=== PATIENT | female | born 1965 | race American Indian/Alaskan Native ===

== ENCOUNTER 2017-10-17 11:11 | Outpatient (CLI) | payer OTHER ==
--- NOTE | 2017-10-22 11:04 | XRAY Report ---
EXAMINATION: THREE-VIEW LUMBAR SPINE 10/17/2017. INDICATION: Low back pain. FINDINGS: AP, lateral, coned-down views of the lumbar spine demonstrate mild degenerative disk and facet disease. There are bilateral L5 pars defects, with approximately 5 mm anterolisthesis of L5 on S1. No compression fracture is identified. IMPRESSION: ANTEROLISTHESIS OF L5 ON S1, SECONDARY TO BILATERAL L5 PARS DEFECTS. MILD DEGENERATIVE CHANGES. TD: 10/17/2017 13:43 [facility]
== END 2017-10-17 11:12 | disposition home or self-care (01) ==
LOC: DI 11:11
PROVIDERS: ATTEND Internal Medicine
DX: M43.06 Spondylolysis, lumbar region (principal); M51.36 Other intervertebral disc degeneration, lumbar region; M47.896 Other spondylosis, lumbar region
CPT/HCPCS: 72100

== ENCOUNTER 2018-07-11 14:40 | Outpatient (CLI) | payer OTHER ==
--- NOTE | 2018-07-12 19:24 | Ultrasound Report ---
Reason: ELEVATED LFT'S Procedure Date: 07/11/2018 Accession Number: [id number] / [id number] Procedure: US - Abdomen Limited CPT Code: FULL RESULT: EXAM: ABDOMEN ULTRASOUND LIMITED, RUQ EXAM DATE: 07/11/2018 03:16 PM. CLINICAL HISTORY: Elevated LFTs. COMPARISON: None. TECHNIQUE: Real-time scanning was performed with static images obtained. FINDINGS: Liver: Normal in size. Hyperechoic echotexture. 17.9 cm. Main portal vein flow: Hepatopetal. Gallbladder: Surgically absent. Biliary System: CBD measures 5 mm. No intrahepatic or extrahepatic ductal dilatation. Other: The visualized pancreas and right kidney are unremarkable. No free fluid. IMPRESSION: 1. Cholecystectomy. 2. Hepatic steatosis. RADIA
== END 2018-07-11 14:41 | disposition home or self-care (01) ==
LOC: DI 14:40
PROVIDERS: ATTEND Internal Medicine
DX: R74.8 Abnormal levels of other serum enzymes (principal); K76.0 Fatty (change of) liver, not elsewhere classified
CPT/HCPCS: 76705

== ENCOUNTER 2020-10-20 18:25 | Emergency (ER) | payer OTHER ==
[2020-10-20 18:44] VITALS: BP 132/71
--- NOTE | 2020-10-20 19:08 | ED Physician Documentation ---
PD HPI LOWER EXT INJURY - Stated complaint Stated Complaint: GLF/RT ANKLE PX - Chief complaint Chief Complaint: Ext Problem - History obtained from History obtained from: Patient - Additional information Additional information: She was in her yard scooping the dog poop, inverted her ankle, the right 1 on a wet surface on slope. For the cough and now has moderate pain in the lateral right ankle. Declines pain medications. No other injuries. Review of Systems Constitutional: reports: Reviewed and negative Eyes: reports: Reviewed and negative Ears: reports: Reviewed and negative Nose: reports: Reviewed and negative Throat: reports: Reviewed and negative Cardiac: reports: Reviewed and negative PD PAST MEDICAL HISTORY - Past Medical History Past Medical History: Yes Cardiovascular: None, Other Respiratory: None Endocrine/Autoimmune: None GI: GERD SAMPLE COLLECTOR: Fibroids : None HEENT: None Psych: None Musculoskeletal: None Derm: None, Other - Past Surgical History Past Surgical History: Yes General: Cholecystectomy Ortho: Other /SAMPLE COLLECTOR: section - Present Medications Home Medications: Ambulatory Orders Medication Instructions Recorded Confirmed Knee Scooter 1 unit TD ONCE #1 10/20/20 metFORMIN [Glucophage] 500 mg PO BIDWM 10/20/20 10/20/20 - Allergies Allergies/Adverse Reactions: Allergies Allergy/AdvReac Type Severity Reaction Status Date / Time tomatoes Allergy Intermediate Itching Uncoded 10/20/20 18:44 - Social History Does the pt smoke?: No Smoking Status: Never smoker Does the pt drink ETOH?: No Does the pt have substance abuse?: No - Immunizations Immunizations are current?: Yes - POLST Patient has POLST: No PD ED PE NORMAL - Vitals Vital signs reviewed: Yes - General General: Alert and oriented X 3, No acute distress - Extremities Extremities: Other (Mild tenderness over the lateral malleolus. No tenderness over the proximal fibula nor the foot anywhere. No swelling. No deformity. Good pedal pulses and sensation.) - Neuro Neuro: Alert and oriented X 3, Normal speech Results - Vitals Vitals: Vital Signs - 24 hr 10/20/20 18:39 Temperature 36.6 C Heart Rate 74 Respiratory 16 Rate Blood Pressure 132/71 H O2 Saturation 95 Oxygen O2 Source Room air - Rads (name of study) R ankle XR Radiology: EMP read contemporaneously (Very distal chip fracture of the fibula) Procedures - Splint (location) RRLE Splint applied by: Tech Type of splint: Fiberglass, Short leg, Posterior Other: Patient tolerated well, No complications, Neurovascular intact, Crutches provided Departure - Departure Disposition: 01 Home, Self Care Clinical Impression: Closed fracture of right distal fibula Qualifiers: Encounter type: initial encounter Fracture morphology: other fracture Qualified Code(s): S82.831A - Other fracture of upper and lower end of right fibula, initial encounter for closed fracture Condition: Good Record reviewed to determine appropriate education?: Yes Instructions: ED Fx Lower Ext Follow-Up: [facility] [Provider Group] Prescriptions: Knee Scooter 1 unit TD ONCE #1 Comments: You just have a little chip fracture of the end of the bone at the ankle there. I think this will heal up fine. Keep the splint on and do not walk on it pending follow-up with the orthopedic office. Call them on Friday for an appointment. You can take Tylenol or ibuprofen as needed for pain. Keep it elevated. Discharge Date/Time: 10/20/20 19:50
--- OUTSIDE RECORDS SUMMARY | 2020-10-20 19:11 | EXTERNAL MEDICAL SUMMARY RPT | Continuity of Care Document ---
:1965 Demographics Phone Unavailable Preferred Language Georgian Marital Status Unknown Zoroastrian Affiliation Unknown Race Unknown Ethnic Group Unknown Author Organization [employer] [address] [place] [address] Phone Care Team Providers Name Role Phone Sonny Cazares Unavailable Unavailable Sri Hancock Unavailable Unavailable Sofi Salinas Unavailable Unavailable Problems date description facility Never smoked tobacco (finding) [facility] Patient Education [facility] 2017-10-17 11:10 LOW BACK PAIN [facility] 2017-10-17 11:11 LOW BACK PAIN [facility] 2017-11-04 13:40 ENCNTR SCREEN MAMMOGRAM FOR [facility] MALIGNANT NEOPLASM OF BREAST 2017-11-10 13:40 ENCNTR SCREEN MAMMOGRAM FOR [facility] MALIGNANT NEOPLASM OF BREAST 2018-07-09 15:45 ABNORMAL LEVELS OF OTHER SERUM [facility] ENZYMES 2018-07-11 14:40 ABNORMAL LEVELS OF OTHER SERUM [facility] ENZYMES 2018-07-11 15:15 ABNORMAL LEVELS OF OTHER SERUM [facility] ENZYMES 2020-09-30 22:[address] Allergies date description facility No Known Drug Allergies [facility] Medications date description facility 2020-10-09 00:00:00 Acetaminophen 325 MG Oral Tablet [facility] 2020-10-09 00:00:00 Cyclobenzaprine hydrochloride 5 MG [facility] Tablet 2020-10-09 00:00:00 Metformin hydrochloride 500 MG Oral Ta [facility] 2020-10-09 00:00:00 Codeine Phosphate 2 MG/ML / Guaifenesi n 20 [facility] MG/ML Oral Solution Procedures date description facility 2020-09-26 00:00:00 [facility] date description facility 2020-09-26 00:00:00 [facility] date description facility 2020-09-26 00:00:00 [facility] date description facility 2020-09-26 00:00:00 [facility] date description facility 2020-09-30 00:00:00 [facility] date description facility 2020-09-30 00:00:00 [facility] date description facility 2020-09-30 00:00:00 Finding [facility] date description facility 2020-09-30 00:00:00 General Physician [facility] date description facility 2020-09-30 00:00:00 [facility] date description facility 2020-09-30 00:00:00 [facility] date description facility 2020-10-01 00:00:00 [facility] date description facility 2020-10-02 00:00:00 [facility] date description facility 2020-10-02 00:00:00 [facility] date description facility 2020-10-04 00:00:00 [facility] Results Social History date description facility [id number] Never smoked tobacco (finding) [facility] Social History date description facility [id number] Never smoked tobacco (finding) [facility] date description facility [id number]
--- NOTE | 2020-10-20 19:19 | XRAY Report ---
PROCEDURE: Ankle 3 View RT INDICATIONS: Fall, now pain TECHNIQUE: 3 views of the ankle were acquired. COMPARISON: None FINDINGS: Bones: Slightly displaced fracture involving tip of lateral malleolus is seen.. Ankle mortise is nor moe aligned. No suspicious bony lesions. Soft tissues: No tibiotalar joint effusion. Achilles tendon appears normal. IMPRESSION: Slightly displaced lateral malleolus tip fracture with mild overlying soft tissue swelli ng. Intact ankle mortise. Reviewed by: Ottoniel Byrne MD on 10/20/2020 7:17 PM PST Approved by: Ottoniel Byrne MD on 10/20/2020 7:17 PM PST Station ID: [id number]
== END 2020-10-20 19:50 | disposition home or self-care (01) ==
LOC: ED 18:25
DX: S82.831A Other fracture of upper and lower end of right fibula, initial encounter for closed fracture (principal); X50.1XXA Overexertion from prolonged static or awkward postures, initial encounter; Y93.H1 Activity, digging, shoveling and raking
CPT/HCPCS: 29515

== ENCOUNTER 2020-12-07 08:00 | Outpatient (CLI) | payer OTHER ==
--- NOTE | 2020-12-07 15:46 | XRAY Report ---
PROCEDURE: Ankle 3 View RT INDICATIONS: ANKLE PAIN, RIGHT TECHNIQUE: 3 views of the ankle were acquired. COMPARISON: 10/20/2020 FINDINGS: Bones: Minimally displaced fracture involving the tip of the lateral malleolus is less conspicuous co mpared to prior examination compatible with evolution of healing. Ankle mortise is normally aligned. No suspicious bony lesions. Soft tissues: No tibiotalar joint effusion. Achilles tendon appears normal. Calcaneal bone spurs. IMPRESSION: Lateral malleolus fracture healing in anatomic alignment. Reviewed by: Susan Chaney MD, PhD on 12/07/2020 3:44 PM PST Approved by: Susan Chaney MD, PhD on 12/07/2020 3:44 PM PST Station ID: [id number]
== END 2020-12-07 23:59 | disposition home or self-care (01) ==
LOC: DI.N 08:00
PROVIDERS: ATTEND Physician Assistant
DX: S82.61XD Displaced fracture of lateral malleolus of right fibula, subsequent encounter for closed fracture with routine healing (principal)

== ENCOUNTER 2020-12-22 07:00 | Outpatient (CLI) | payer OTHER ==
--- NOTE | 2020-12-22 10:36 | XRAY Report ---
PROCEDURE: Ankle 3 View RT INDICATIONS: RT ANKLE FOLLOW UP TECHNIQUE: 3 views of the ankle were acquired. COMPARISON: 12/07/2020, 10/20/2020 FINDINGS: Bones: Stable alignment of distal lateral malleolus fracture with increased sclerosis and blurring of the fracture plane. Ankle mortise is normally aligned. Interval development of minor subcortical cy stic changes in the medial corner of the talus. Soft tissues: No tibiotalar joint effusion. Achilles tendon appears normal. IMPRESSION: 1. Healing distal fibular fracture. 2. Development of subcortical medial talar dome cysts. Continued follow-up is suggested. Reviewed by: Maren Pennington MD on 12/22/2020 9:35 AM [place] Approved by: Maren Pennington MD on 12/22/2020 9:35 AM [facility] Station ID: [id number]
== END 2020-12-22 23:59 | disposition home or self-care (01) ==
LOC: DI.N 07:00
PROVIDERS: ATTEND Physician Assistant
DX: M25.571 Pain in right ankle and joints of right foot (principal); S82.831D Other fracture of upper and lower end of right fibula, subsequent encounter for closed fracture with routine healing; M25.871 Other specified joint disorders, right ankle and foot

== ENCOUNTER 2021-02-22 13:34 | Outpatient (CLI) | payer OTHER ==
--- NOTE | 2021-02-23 09:37 | Mammography Report ---
BILATERAL DIGITAL SCREENING MAMMOGRAM 3D/2D: 02/22/2021 CLINICAL: Routine screening. Comparison is made to exams dated: 01/09/2017 mammogram, 01/09/2017 ultrasound - [facility], an d 10/03/2014 mammogram - [facility]. There are scattered fibroglandular elements in katya th breasts. No significant masses, calcifications, or other findings are seen in either breast. There has been no significant interval change. IMPRESSION: NEGATIVE There is no mammographic evidence of malignancy. A 1 year screening mammogram is recommended. This exam was interpreted at Station ID: [id number]. NOTE: For mammograms, a report in lay terms will be sent to the patient. Approximately 15% of breast malignancies will not be visualized mammographically. In the management of a palpable breast mass, a negative mammogram must not discourage biopsy of a clinically suspicious lesion. Electronically Signed By: Sergio Evans M.D. slc/penrad:02/22/2021 15:57:43 ACR BI-RADS Category 1: Negative 3341F PARENCHYMAL PATTERN: (A) - The breast(s) demonstrate(s) scattered fibroglandular densities. BI-RADS CATEGORY: (1) - 1 RECOMMENDATION: (ANNUAL) - Recommend routine annual screening mammography. [id number] 1 year screening LATERALITY: (B)
== END 2021-02-22 13:35 | disposition home or self-care (01) ==
LOC: DI.N 13:34
PROVIDERS: ATTEND Hospitalist
DX: Z12.31 Encounter for screening mammogram for malignant neoplasm of breast (principal)

== ENCOUNTER 2021-05-30 13:07 | Outpatient (CLI) | payer OTHER ==
--- NOTE | 2021-05-30 15:17 | XRAY Report ---
PROCEDURE: Sacrum/Coccyx INDICATIONS: BACK PX TECHNIQUE: 3 views of the sacrum and coccyx acquired. COMPARISON: None FINDINGS: Bones: No fractures or dislocations. No suspicious bony lesions. Mild L5-S1 anterolisthesis seconda ry to bilateral L5 pars and articularis defects. Mild degenerative changes noted in the visualized allison mbar spine. Mild bilateral hip osteoarthritis. Soft tissues: Visualized bowel gas pattern is normal. No suspicious soft tissue densities. Mild degenerative disc changes noted in the lower lumbar spine. IMPRESSION: 1. No fracture. No acute osseous lesion. If there are persistent symptoms or continued clinical amanda rn for pathology, then MRI should be considered for further evaluation. 2. Grade 1 L5-S1 isthmic spondylolisthesis. Reviewed by: Susan Chaney MD, PhD on 05/30/2021 3:16 PM PDT Approved by: Susan Chaney MD, PhD on 05/30/2021 3:16 PM PDT Station ID: [id number]
== END 2021-05-30 23:59 | disposition home or self-care (01) ==
LOC: DI.N 13:07
PROVIDERS: ATTEND Nurse Practitioner
DX: M54.9 Dorsalgia, unspecified (principal); M43.17 Spondylolisthesis, lumbosacral region

== ENCOUNTER 2021-07-17 08:00 | Outpatient (CLI) | payer OTHER ==
--- NOTE | 2021-07-17 11:59 | XRAY Report ---
PROCEDURE: Ankle 3 View RT INDICATIONS: DISPLACED FX OF LATERAL TECHNIQUE: 3 views of the ankle were acquired. COMPARISON: X-ray ankle 12/22/2020 FINDINGS: Bones: Previously noted distal lateral malleolar fracture is no longer visualized. No acute fractures are present. Ankle mortise is normally aligned. No suspicious bony lesions. Soft tissues: No tibiotalar joint effusion. Achilles tendon appears normal. IMPRESSION: Previous lateral malleolar fracture is not visualized. Reviewed by: Annelise Denny MD on 07/17/2021 11:58 AM PDT Approved by: Annelise Denny MD on 07/17/2021 11:58 AM PDT Station ID: [id number]
== END 2021-07-17 23:59 | disposition home or self-care (01) ==
LOC: DI.N 08:00
PROVIDERS: ATTEND Physician Assistant
DX: S82.61XA Displaced fracture of lateral malleolus of right fibula, initial encounter for closed fracture (principal)

== ENCOUNTER 2021-11-05 15:48 | Emergency (ER) | payer OTHER ==
[2021-11-05] MEDS ORDERED: KETOROLAC 30 MG/ML VIAL IVP STA (16:42)
[2021-11-05] MEDS ORDERED: SODIUM CHLORIDE 0.9% 1,000 ML IV STA (16:42)
--- NOTE | 2021-11-05 16:45 | ED Physician Documentation ---
PD HPI ABD PAIN - Stated complaint Stated Complaint: BACK PX - Chief complaint Chief Complaint: Abd Pain - History obtained from History obtained from: Patient - History of Present Illness Timing - onset: Today Timing - duration: Hours Timing - details: Abrupt onset, Still present Quality: Sharp, Pain Location: RLQ Radiation: Right flank Improved by: Other (nothing) Worsened by: Other (nothing) Associated symptoms: Nausea, Vomiting, Diarrhea (two days ago one episode.). No: Dysuria, Hematuria Similar symptoms before: Has not had sx before Recently seen: Other (sent here by the lab) - Additional information Additional information: 56-year-old female previously well has developed acute right lower quadrant abdominal pain that is radiating to her back. This appeared to have come from nowhere and she is not able to make this any better or any worse. [place] emergency [place] Review of Systems Constitutional: denies: Fever Ears: denies: Ear pain Nose: denies: Congestion Throat: denies: Oral lesions / sores, Sore throat Cardiac: denies: Chest pain / pressure Respiratory: denies: Dyspnea, Cough GI: reports: Abdominal Pain, Nausea, Vomiting : denies: Dysuria, Frequency PD PAST MEDICAL HISTORY - Past Medical History Cardiovascular: None, Other Respiratory: None Endocrine/Autoimmune: None GI: GERD NEGATIVE CHECKER: Fibroids : None HEENT: None Psych: None Musculoskeletal: None Derm: None, Other - Past Surgical History Past Surgical History: Yes General: Cholecystectomy Ortho: Other /NEGATIVE CHECKER: section - Present Medications Home Medications: Ambulatory Orders Medication Instructions Recorded Confirmed Knee Scooter 1 unit TD ONCE #1 10/20/20 metFORMIN [Glucophage] 500 mg PO BIDWM 10/20/20 10/20/20 HYDROcod/ACETAM 5/325 [Hepzibah 5/325] 1 - 2 tablet PO Q6H PRN #14 tablet 11/05/21 - Allergies Allergies/Adverse Reactions: Allergies Allergy/AdvReac Type Severity Reaction Status Date / Time tomatoes Allergy Intermediate Itching Uncoded 11/05/21 16:04 - Social History Does the pt smoke?: No Smoking Status: Never smoker Does the pt drink ETOH?: No Does the pt have substance abuse?: No - Immunizations Immunizations are current?: Yes - POLST Patient has POLST: No PD ED PE NORMAL - Vitals Vital signs reviewed: Yes (Hypertensive) - General General: Alert and oriented X 3, Well developed/nourished, Other (Appears to be in pain with some moaning.) - HEENT HEENT: Atraumatic, PERRL, EOMI - Neck Neck: Supple, no meningeal sign, No bony TTP - Cardiac Cardiac: RRR, No murmur - Respiratory Respiratory: No respiratory distress, Clear bilaterally - Abdomen Abdomen: Normal bowel sounds, Soft, Non tender, Non distended, No organomegaly - Back Back: No CVA TTP, No spinal TTP - Derm Derm: Normal color, Warm and dry, No rash - Extremities Extremities: No deformity, No edema - Neuro Neuro: Alert and oriented X 3, digital controls technical officer 2-12 intact, No motor deficit, No sensory deficit, Normal speech Eye Opening: Spontaneous Motor: Obeys Commands Verbal: Oriented GCS Score: 15 - Psych Psych: Normal mood, Normal affect Results - Vitals Vitals: Vital Signs - 24 hr 11/05/21 11/05/21 16:04 19:21 Temperature 36.9 C 36.6 C Heart Rate 75 59 L Respiratory 18 16 Rate Blood Pressure 146/99 H 111/54 L O2 Saturation 99 97 Oxygen O2 Source Room air - Labs Labs: Laboratory Tests 11/05/21 11/05/21 11/05/21 13:20 16:34 16:34 WBC 13.2 H RBC 4.77 Hgb 14.5 Hct 42.7 MCV 89.5 MCH 30.4 MCHC 34.0 RDW 12.9 Plt Count 331 MPV 9.8 Neut # (Auto) 11.0 H Lymph # (Auto) 1.4 L [place] # (Auto) 0.6 Eos # (Auto) 0.1 Baso # (Auto) 0.1 Absolute Nucleated RBC 0.00 Nucleated RBC % 0.0 Sodium 144 Potassium 3.2 L Chloride 104 Carbon Dioxide 26 Anion Gap 14.0 H BUN 13 Creatinine 0.8 Estimated GFR (MDRD) 74 L Glucose 127 H Calcium 9.2 Total Bilirubin 0.7 AST 23 ALT 19 Alkaline Phosphatase 87 Total Protein 8.0 Albumin 4.8 Globulin 3.2 Albumin/Globulin Ratio 1.5 Lipase 26 Urine Color YELLOW Urine Clarity CLEAR Urine pH 7.5 Ur Specific [place] 1.020 Urine Protein NEGATIVE Urine Glucose (UA) NEGATIVE Urine Ketones NEGATIVE Urine Occult Blood TRACE Urine Nitrite NEGATIVE Urine Bilirubin NEGATIVE Urine Urobilinogen 0.2 (NORMAL) Ur Leukocyte Esterase TRACE H Urine RBC 0-5 Urine WBC 0-3 Ur Squamous Epith Cells FEW Squamous Urine Bacteria Rare Ur Microscopic Review INDICATED Urine Culture Comments INDICATED Urine HCG, Qual NEGATIVE - Rads (name of study) CT ab pel Radiology: Prelim report reviewed (Impression: There is a 4 to 5 mm obstructing stone seen in the right distal ureter, with associated right hydroureter and hydronephrosis. No nonobstructing kidney stones are seen. Incidental note is made of: Normal appendix.), EMP read indepedently, See rad report Procedures - Bedside sono Bedside sono by EMP: With use of bedside ultrasound the right kidney is imaged it is sonographically nontender and there is evidence of hydronephrosis. PD MEDICAL DECISION MAKING - ED course Complexity details: reviewed results, re-evaluated patient, considered differential, d/w patient ED course: 56-year-old female with a history of acute onset of nonmodifiable right flank pain and right lower quadrant pain has some vomiting associated with this. She has some mild hydronephrosis on bedside ultrasound examination and the tentative diagnosis been ureteral lithiasis. We have provided a liter of saline 30 mg of Toradol and a CT of the abdomen pelvis is pending.The CT abdomen pelvis shows a normal appendix and a 4 to 5 mm stone in the distal right ureter. She has relief with use of the Toradol and a liter of saline. She still has some background pain. We will send her home with pain medication and instructions on ureteral lithiasis. Departure - Departure Disposition: 01 Home, Self Care Clinical Impression: Ureterolithiasis Condition: Stable Instructions: ED Stone Renal W Colic Follow-Up: [facility] [Provider Group] Prescriptions: HYDROcod/ACETAM 5/325 [Hepzibah 5/325] 1 - 2 tablet PO Q6H PRN #14 tablet PRN Reason: Pain Comments: Odalis, today there is a 4 to 5 mm stone in the distal ureter on the right side. This is the cause of your pain. When this stone passes into the bladder your pain will be relieved completely and there should be no specific thing you need to do following that. In the meantime make sure that you control your pain and we have provided some narcotic pain reliever to use as needed. This has been e-scribed to [facility]re[facility] in [place].
[2021-11-05] MEDS ORDERED: KETOROLAC 15 MG/ML VIAL ONE (16:53)
[2021-11-05 16:56] LABS: HCT - HEMATOCRIT 42.7 % (37.0-47.0); HGB - HEMOGLOBIN 14.5 g/dL (12.0-16.0); MEAN CORPUSCULAR VOLUME 89.5 fL (81.0-99.0); RED BLOOD COUNT 4.77 10^6/uL (4.20-5.40); WHITE BLOOD COUNT 13.2 x10^3/uL (4.8-10.8)
[2021-11-05 16:57] LABS: BASOPHILS % (AUTO) 0.3 %; EOSINOPHILS % (AUTO) 0.5 %; LYMPHOCYTES % (AUTO) 10.8 %; MEAN CORPUSCULAR HEMOGLOBIN 30.4 pg (27.0-31.0); MEAN PLATELET VOLUME 9.8 fL (7.9-10.8); MONOCYTES % (AUTO) 4.6 %; NEUTROPHILS % (AUTO) 83.3 %; PLT - PLATELET COUNT 331 10^3/uL (130-450); RED CELL DISTRIBUTION WIDTH 12.9 % (12.0-15.0)
[2021-11-05 16:58] LABS: BASOPHILS # (AUTO) 0.1 10^3/uL (0.0-0.1); EOSINOPHILS # (AUTO) 0.1 10^3/uL (0.0-0.7); LYMPHOCYTES # (AUTO) 1.4 10^3/uL (1.5-3.5); MONOCYTES # (AUTO) 0.6 10^3/uL (0.0-1.0)
[2021-11-05 17:10] LABS: POTASSIUM 3.2 mmol/L (3.5-5.0)
[2021-11-05 17:11] LABS: ALBUMIN 4.8 g/dL (3.2-5.5); ALBUMIN/GLOBULIN RATIO 1.5 (1.0-2.2); BILIRUBIN,TOTAL 0.7 mg/dL (0.2-1.0); CALCIUM 9.2 mg/dL (8.5-10.3); CREATININE 0.8 mg/dL (0.4-1.0)
--- NOTE | 2021-11-05 17:40 | CT Report ---
PROCEDURE: Abdomen/Pelvis WO INDICATIONS: R flank pain TECHNIQUE: Noncontrast 5 mm thick sections acquired from the diaphragms to the symphysis. 5 mm coronal and sagi ttal reformats were then performed. For radiation dose reduction, the following was used: automated exposure control, adjustment of mA and/or kV according to patient size. COMPARISON: None. FINDINGS: Image quality: Excellent. ABDOMEN: Lung bases: Mild apparent dependent atelectasis can be seen. Heart size is normal. Solid organs: Liver and spleen are normal in size. Gallbladder has been removed. Pancreas is paris l in contours. No adrenal nodules. There is moderate right-sided hydronephrosis and hydroureter with an obstructing stone seen within th e distal right ureter, as on series 3 image 64 and on series 6 image 29 that measures 4 to 5 mm. No n onobstructing stones are seen within either kidney. No left-sided hydronephrosis. Peritoneum and bowel: Unenhanced bowel loops demonstrate normal wall thickness and caliber. No free fluid or air. A normal appendix is incidentally noted. Nodes and vessels: No retroperitoneal or mesenteric adenopathy by size criteria. Aorta and inferior vena cava are normal in caliber. Miscellaneous: No ventral hernias. PELVIS: Genitourinary: Bladder wall thickness is normal. The uterus demonstrates an unremarkable appearance for age. No adnexal masses are seen. Miscellaneous: No inguinal hernias or adenopathy. Bones: No suspicious bony lesions. No vertebral body compression fractures. Bilateral L5 pars defe cts are seen, with associated grade 1 L4-L5 anterolisthesis. Focal L5-S1 degenerative change is seen. Milder degenerative changes are seen elsewhere. IMPRESSION: There is a 4 to 5 mm obstructing stone seen within the distal right ureter, with associated right hyd roureter and hydronephrosis. No nonobstructing kidney stones are seen. Incidental note is made of: Normal appendix Incidental note is made of: -Cholecystectomy -Bilateral L5 pars defects, with associated grade 1 anterolisthesis at L5-S1 and associated L5-S1 deg enerative change Reviewed by: Manpreet Wang MD on 11/05/2021 4:39 PM [facility] Approved by: Manpreet Wang MD on 11/05/2021 4:39 PM AKST Station ID: [id number]
[2021-11-05 18:46] LABS: BILIRUBIN,URINE NEGATIVE (NEGATIVE); CLARITY,URINE CLEAR (CLEAR); GLUCOSE, URINE (UA) NEGATIVE (NEGATIVE); KETONES,URINE (UA) NEGATIVE (NEGATIVE); LEUKOCYTE ESTERASE, URINE TRACE (NEGATIVE); NITRITE,URINE NEGATIVE (NEGATIVE); OCCULT BLOOD,URINE TRACE (NEGATIVE); PH,URINE 7.5 PH (5.0-7.5); PROTEIN,URINE NEGATIVE (NEGATIVE); UROBILINOGEN,URINE 0.2 (NORMAL) E.U./dL (NORMAL)
[2021-11-05 18:47] LABS: BACTERIA,URINE Rare /HPF (None Seen); HCG UR QUAL NEGATIVE; RBC,URINE 0-5 /HPF (0-5); SQUAMOUS EPITHELIAL CELL,UR FEW Squamous (<= Few); WBC,URINE 0-3 /HPF (0-5)
[2021-11-05] MEDS ORDERED: ONDANSETRON 4 MG/2 ML VIAL IVP STA (18:54)
[2021-11-05] MEDS ORDERED: HYDROmorphone 1 MG/ML CARPUJECT IVP STA (18:54)
[2021-11-05 19:22] VITALS: BP 111/54
== END 2021-11-05 19:28 | disposition home or self-care (01) ==
LOC: ED 15:48
DX: N13.2 Hydronephrosis with renal and ureteral calculous obstruction (principal)
CPT/HCPCS: 36415; 74176; 80053; 81001; 81025; 83690; 85025; 87086; 96374; 96375; 99284; J1170; 81003

== ENCOUNTER 2022-09-23 16:03 | Outpatient (CLI) | payer OTHER | END 2022-09-23 16:04 | disposition EMS.NT | LOC: EMS 16:03 | DX: R09.89 Other specified symptoms and signs involving the circulatory and respiratory systems (principal) ==

== ENCOUNTER 2023-03-11 08:44 | Outpatient (CLI) | payer OTHER ==
--- NOTE | 2023-03-12 10:54 | Mammography Report ---
BILATERAL DIGITAL SCREENING MAMMOGRAM 3D/2D: 03/11/2023 CLINICAL: Routine screening. Comparison is made to exams dated: 02/22/2021 mammogram - [facility], 01/09/2017 mamm ogram, 01/09/2017 ultrasound - [facility], and 10/03/2014 mammogram - [facility] . There are scattered areas of fibroglandular density in both breasts (category b / 25%-50% glandular t issue). No significant masses, calcifications, or other findings are seen in either breast. There has been no significant interval change. IMPRESSION: NEGATIVE There is no mammographic evidence of malignancy. A 1 year screening mammogram is recommended. Based on the Tyrer Cuzick model (a risk assessment model) the patients lifetime risk is 5.5% and her 10 year risk is 1.8%. According to the ACR, ACS, and NCCN guidelines, an annual breast MRI exam diogenes g with mammogram is recommended if the patients lifetime risk is 20% or greater. This exam was interpreted at Station ID: [id number]. NOTE: For mammograms, a report in lay terms will be sent to the patient. Approximately 15% of breast malignancies will not be visualized mammographically. In the management of a palpable breast mass, a negative mammogram must not discourage biopsy of a clinically suspicious lesion. Electronically Signed By: Zac savage/sneha:03/11/2023 09:38:58 letter sent: No_Letter ACR BI-RADS Category 1: Negative 3341F PARENCHYMAL PATTERN: (A) - The breast(s) demonstrate(s) scattered fibroglandular densities. BI-RADS CATEGORY: (1) - 1 Mammogram [id number] 1 year screening LATERALITY: (B)
== END 2023-03-11 08:45 | disposition home or self-care (01) ==
LOC: DI.N 08:44
PROVIDERS: ATTEND Registered Nurse
DX: Z12.31 Encounter for screening mammogram for malignant neoplasm of breast (principal)

== ENCOUNTER 2023-07-16 11:45 | Outpatient (CLI) | payer OTHER | END 2023-07-16 12:00 | disposition home or self-care (01) | LOC: LAB.N 11:45 | PROVIDERS: ATTEND Registered Nurse | DX: K13.79 Other lesions of oral mucosa (principal) | CPT/HCPCS: 87252 ==

== ENCOUNTER 2023-10-25 15:20 | Emergency (ER) | payer OTHER ==
[2023-10-25 16:30] LABS: BASOPHILS # (AUTO) 0.1 10^3/uL (0.0-0.1); BASOPHILS % (AUTO) 1.6 %; EOSINOPHILS # (AUTO) 0.2 10^3/uL (0.0-0.7); EOSINOPHILS % (AUTO) 3.4 %; HCT - HEMATOCRIT 43.7 % (37.0-47.0); HGB - HEMOGLOBIN 14.4 g/dL (12.0-16.0); LYMPHOCYTES # (AUTO) 2.4 10^3/uL (1.5-3.5); LYMPHOCYTES % (AUTO) 34.3 %; MEAN CORPUSCULAR HEMOGLOBIN 30.2 pg (27.0-31.0); MEAN CORPUSCULAR VOLUME 91.6 fL (81.0-99.0); MEAN PLATELET VOLUME 9.4 fL (7.9-10.8); MONOCYTES # (AUTO) 0.5 10^3/uL (0.0-1.0); MONOCYTES % (AUTO) 7.7 %; NEUTROPHILS # (AUTO) 3.6 10^3/uL (1.5-6.6); NEUTROPHILS % (AUTO) 52.7 %; PLT - PLATELET COUNT 287 10^3/uL (130-450); RED BLOOD COUNT 4.77 10^6/uL (4.20-5.40); RED CELL DISTRIBUTION WIDTH 13.1 % (12.0-15.0); WHITE BLOOD COUNT 6.9 x10^3/uL (4.8-10.8)
[2023-10-25 16:45] LABS: ALBUMIN 4.2 g/dL (3.2-5.5); ALBUMIN/GLOBULIN RATIO 1.6 (1.0-2.2); BILIRUBIN,TOTAL 0.3 mg/dL (0.2-1.0); CREATININE 0.8 mg/dL (0.6-1.3); TOTAL PROTEIN 6.8 g/dL (6.4-8.9)
[2023-10-25 16:47] LABS: B. PARAPERTUSSIS- RESP PCR PAN NOT DETECTED; B. PERTUSSIS- RESP PCR PANEL NOT DETECTED; C. PNEUMONIAE- RESP PCR PANEL NOT DETECTED; CORONAVIRUS 229E-RESP PCR NOT DETECTED; CORONAVIRUS HKU1-RESP PCR NOT DETECTED; CORONAVIRUS NL63-RESP PCR NOT DETECTED; CORONAVIRUS OC43-RESP PCR NOT DETECTED; HUMAN METAPNEUMOVIRUS NOT DETECTED; INFLUENZA A- RESP PCR PANEL NOT DETECTED; INFLUENZA B - RESP PCR PANEL NOT DETECTED; M. PNEUMONIAE- RESP PCR PANEL NOT DETECTED; PARAINFLUENZA VIRUS 1 NOT DETECTED; PARAINFLUENZA VIRUS 2 NOT DETECTED; PARAINFLUENZA VIRUS 3 NOT DETECTED; PARAINFLUENZA VIRUS 4 NOT DETECTED; RHINOVIRUS/ENTEROVIRUS NOT DETECTED; RSV- RESP PCR PANEL NOT DETECTED; SARS-CoV-2 -RESP PCR PANEL NOT DETECTED
[2023-10-25 16:52] LABS: TROPONIN I HIGH SENSITIVITY 3.2 ng/L (2.3-14.8)
--- NOTE | 2023-10-25 17:02 | XRAY Report ---
PROCEDURE: Chest 1V INDICATIONS: Chest pain TECHNIQUE: One view of the chest was acquired. COMPARISON: None. FINDINGS: Surgical changes and devices: Cholecystectomy. Lungs and pleura: No pleural effusions or pneumothorax. Lungs are clear. Mediastinum: Mediastinal contours appear normal. Heart size is normal. Bones and chest wall: No suspicious bony lesions. Overlying soft tissues appear unremarkable. IMPRESSION: No acute cardiopulmonary process. Reviewed by: Manpreet Wang MD on 10/25/2023 4:01 PM [facility] Approved by: Manpreet Wang MD on 10/25/2023 4:01 PM [facility] Station ID: [id number]
[2023-10-25] MEDS ORDERED: MAG HYDROX/AL HYDROX/SIMETH 30 ML UDC PO STA (17:16)
[2023-10-25] MEDS ORDERED: LIDOCAINE VISCOUS 2% 15 ML ORAL SYRINGE MM STA (17:16)
--- NOTE | 2023-10-25 17:17 | ED Physician Documentation ---
PD HPI CHEST PAIN - Stated complaint Stated Complaint: CHEST/THROAT PX - Chief complaint Chief Complaint: Resp - History obtained from History obtained from: Patient - Additional information Additional information: 58-year-old female presents for evaluation of throat and chest "burning" with nonproductive cough. Patient also endorses 2 episodes pink-tinged sputum. Patient states that she was visiting her brother in [place] and they both got COVID 2 weeks ago. She seemed to be recovering well other than dry nose from the change in environment. She states that this almost feels like acid reflux, but it is not improved with Tums. Review of Systems Constitutional: denies: Fever, Chills Throat: reports: Sore throat Cardiac: reports: Chest pain / pressure. denies: Palpitations, Calf pain Respiratory: denies: Dyspnea, Cough, Wheezing GI: denies: Abdominal Pain, Nausea, Vomiting : denies: Dysuria, Frequency, Hesitancy PD PAST MEDICAL HISTORY - Past Medical History Cardiovascular: None, Other Respiratory: None Endocrine/Autoimmune: None GI: GERD BINDERY ASSISTANT: Fibroids : None HEENT: None Psych: None Musculoskeletal: None Derm: None, Other - Past Surgical History Past Surgical History: Yes General: Cholecystectomy Ortho: Other /BINDERY ASSISTANT: section - Present Medications Home Medications: Ambulatory Orders Medication Instructions Recorded Confirmed Knee Scooter 1 unit TD ONCE #1 10/20/20 metFORMIN [Glucophage] 500 mg PO BIDWM 10/20/20 10/20/20 HYDROcod/ACETAM 5/325 [[place] 5/325] 1 - 2 tablet PO Q6H PRN #14 tablet 11/05/21 - Allergies Allergies/Adverse Reactions: Allergies Allergy/AdvReac Type Severity Reaction Status Date / Time tomatoes Allergy Intermediate Itching Uncoded 11/05/21 16:04 - Social History Does the pt smoke?: No Smoking Status: Never smoker Does the pt drink ETOH?: No Does the pt have substance abuse?: No - Immunizations Immunizations are current?: Yes - POLST Patient has POLST: No PD ED PE NORMAL - Vitals Vital signs reviewed: Yes - General General: Alert and oriented X 3, No acute distress, Well developed/nourished - HEENT HEENT: Atraumatic, PERRL, EOMI, Ears normal, Moist mucous membranes, Other (erythematous nasal turbinates without active bleeding. No pharyngeal erythema or exudates) - Neck Neck: Supple, no meningeal sign, No bony TTP, No adenopathy - Cardiac Cardiac: RRR, Strong equal pulses - Respiratory Respiratory: No respiratory distress, Clear bilaterally - Abdomen Abdomen: Soft, Non tender, Non distended - Derm Derm: Normal color, Warm and dry, No rash - Extremities Extremities: No deformity, No tenderness to palpate, Normal ROM s pain, No edema - Neuro Neuro: Alert and oriented X 3, digital associate media director 2-12 intact, No motor deficit, Normal speech - Psych Psych: Normal mood, Normal affect Results - Vitals Vitals: Vital Signs - 24 hr 10/25/23 10/25/23 10/25/23 15:41 15:44 17:44 Temperature 36.5 C 36.5 C 36.5 C Heart Rate 60 60 60 Respiratory 18 18 16 Rate Blood Pressure 147/68 H 147/68 H 140/60 H O2 Saturation 99 99 100 Oxygen O2 Source Room air - Labs Labs: Laboratory Tests 10/25/23 10/25/23 10/25/23 15:52 16:25 16:25 WBC 6.9 RBC 4.77 Hgb 14.4 Hct 43.7 MCV 91.6 MCH 30.2 MCHC 33.0 RDW 13.1 Plt Count 287 MPV 9.4 Neut # (Auto) 3.6 Lymph # (Auto) 2.4 [place] # (Auto) 0.5 Eos # (Auto) 0.2 Baso # (Auto) 0.1 Absolute Nucleated RBC 0.00 Nucleated RBC % 0.0 D-Dimer Sodium 140 Potassium 4.0 Chloride 105 Carbon Dioxide 29 Anion Gap 6.0 BUN 14 Creatinine 0.8 Estimated GFR (MDRD) 74 L Glucose 98 Calcium 9.0 Total Bilirubin 0.3 AST 36 ALT 43 Alkaline Phosphatase 113 Troponin I High Sens 3.2 Total Protein 6.8 Albumin 4.2 Globulin 2.6 Albumin/Globulin Ratio 1.6 Lipase 27 Nasal Adenovirus (PCR) NOT DETECTED Nasal B. parapertussis DNA (PCR) NOT DETECTED Nasal Coronavir 229E PCR NOT DETECTED Nasal Coronavir HKU1 PCR NOT DETECTED Nasal Coronavir NL63 PCR NOT DETECTED Nasal Coronavir OC43 PCR NOT DETECTED Nasal Enterovir/Rhinovir PCR NOT DETECTED Nasal Influenza B PCR NOT DETECTED Nasal Influenza A PCR NOT DETECTED Nasal Parainfluen 1 PCR NOT DETECTED Nasal Parainfluen 2 PCR NOT DETECTED Nasal Parainfluen 3 PCR NOT DETECTED Nasal Parainfluen 4 PCR NOT DETECTED Nasal RSV (PCR) NOT DETECTED Nasal B.pertussis DNA PCR NOT DETECTED Nasal C.pneumoniae (PCR) NOT DETECTED Leonard Human Metapneumo PCR NOT DETECTED Nasal M.pneumoniae (PCR) NOT DETECTED Nasal SARS-CoV-2 (PCR) NOT DETECTED 10/25/23 16:25 WBC RBC Hgb Hct MCV MCH MCHC RDW Plt Count MPV Neut # (Auto) Lymph # (Auto) [place] # (Auto) Eos # (Auto) Baso # (Auto) Absolute Nucleated RBC Nucleated RBC % D-Dimer < 200.0 L Sodium Potassium Chloride Carbon Dioxide Anion Gap BUN Creatinine Estimated GFR (MDRD) Glucose Calcium Total Bilirubin AST ALT Alkaline Phosphatase Troponin I High Sens Total Protein Albumin Globulin Albumin/Globulin Ratio Lipase Nasal Adenovirus (PCR) Nasal B. parapertussis DNA (PCR) Nasal Coronavir 229E PCR Nasal Coronavir HKU1 PCR Nasal Coronavir NL63 PCR Nasal Coronavir OC43 PCR Nasal Enterovir/Rhinovir PCR Nasal Influenza B PCR Nasal Influenza A PCR Nasal Parainfluen 1 PCR Nasal Parainfluen 2 PCR Nasal Parainfluen 3 PCR Nasal Parainfluen 4 PCR Nasal RSV (PCR) Nasal B.pertussis DNA PCR Nasal C.pneumoniae (PCR) Leonard Human Metapneumo PCR Nasal M.pneumoniae (PCR) Nasal SARS-CoV-2 (PCR) PD Medical Decision Making - ED course Complexity details: reviewed old records, reviewed results, re-evaluated patient, considered differential, d/w patient, d/w family ED course: Well-appearing patient with 1 week of chest and throat burning. She reports 2 episodes of very faintly pink-tinged sputum and is concerned that this may be a side effect of radiation from being around her brother or a side effect of COVID-19 that she had several weeks ago. Patient is hemodynamically stable, saturating well on room air, lungs are clear to auscultation bilaterally. Patient's description of symptoms as well as benign exam leads PE to be low on the differential, but she does have risk factors of recent airline travel. Laboratory work is reviewed, unremarkable. Troponin is negative, not anemic. D-dimer is less than 200, putting patient a very low probability of pulmonary embolism. I suspect that patient could be having occult minor nosebleeds that lead to the pink-tinged sputumAs she was reporting dry nose at her brother's place in [place]. Patient counseled to use Flonase or saline sprays as needed for nasal dryness. She was relieved to know that her labs and imaging appear to be normal. Patient was given strict ER return precautions as well as instructions to follow-up with PCP. Departure - Departure Disposition: 01 Home, Self Care Clinical Impression: Chest pain Condition: Stable Instructions: ED Chest Pain Atypical Unkn Cause Comments: Follow-up with your primary care physician once the holidays are over. If you notice any change in your pain or if you notice worsening bleeding please return to the emergency department for repeat evaluation. Forms: PCP List Discharge Date/Time: 10/25/23 18:12
[2023-10-25 17:50] VITALS: BP 140/60; O2SAT 100
== END 2023-10-25 18:12 | disposition home or self-care (01) ==
LOC: ED 15:20
DX: R07.9 Chest pain, unspecified (principal); Z11.52 Encounter for screening for COVID-19
CPT/HCPCS: 36415; 71045; 80053; 83690; 84484; 85025; 85379; 87633; 93005; 99283; 99284; A9270

== ENCOUNTER 2024-03-16 08:13 | Outpatient (CLI) | payer OTHER ==
--- NOTE | 2024-03-17 09:27 | Mammography Report ---
BILATERAL DIGITAL SCREENING MAMMOGRAM 3D/2D: 03/16/2024 CLINICAL: Routine screening. Comparison is made to exams dated: 03/11/2023 mammogram, 02/22/2021 mammogram - [facility], 01/09/2017 mammogram, 01/09/2017 ultrasound - [facility], and 10/03/2014 mammogram - [facility]. There are scattered areas of fibroglandular density in both breasts (category b / 25%-50% glandular t issue). No significant masses, calcifications, or other findings are seen in either breast. There has been no significant interval change. IMPRESSION: NEGATIVE There is no mammographic evidence of malignancy. A 1 year screening mammogram is recommended. Based on the Tyrer Cuzick model (a risk assessment model) the patient's lifetime risk is 5.4% and her 10 year risk is 1.9%. According to the ACR, ACS, and NCCN guidelines, an annual breast MRI exam diogenes g with mammogram is recommended if the patient's lifetime risk is 20% or greater. This exam was interpreted at Station ID: [id number]. NOTE: For mammograms, a report in lay terms will be sent to the patient. Approximately 15% of breast malignancies will not be visualized mammographically. In the management of a palpable breast mass, a negative mammogram must not discourage biopsy of a clinically suspicious lesion. Electronically Signed By: Zac savage/sneha:03/16/2024 17:04:36 ACR BI-RADS Category 1: Negative 3341F PARENCHYMAL PATTERN: (A) - The breast(s) demonstrate(s) scattered fibroglandular densities. BI-RADS CATEGORY: (1) - 1 RECOMMENDATION: (ANNUAL) - Recommend routine annual screening mammography. [id number] 1 year screening LATERALITY: (B)
== END 2024-03-16 08:14 | disposition home or self-care (01) ==
LOC: DI.N 08:13
PROVIDERS: ATTEND Registered Nurse
DX: Z12.31 Encounter for screening mammogram for malignant neoplasm of breast (principal); R92.323 Mammographic fibroglandular density, bilateral breasts